=== PATIENT | female | born 1990 | race American Indian/Alaskan Native ===

== ENCOUNTER 2017-04-10 13:01 | Day surgery (SDC) | payer MEDICAID ==
[2017-04-10] MEDS ORDERED: DEXAMETHASONE 10 MG/ML VIAL IVP ONE (13:12)
[2017-04-10] MEDS ORDERED: LIDOCAINE 1% 2 ML INJ ID PRN (13:17)
[2017-04-10] MEDS ORDERED: LR 1,000 ML IV ONE (13:17)
--- NOTE | 2017-04-10 13:37 | PDANEPAE ---
ANE History of Present Illness 27 yo F h/o recurrent tonsillitis here for T/A ANE Past Medical History - Cardiovascular History Hx Hypertension: No Hx Arrhythmias: No Hx Chest Pain: No Hx Coronary Artery / Peripheral Vascular Disease: No Hx CHF / Valvular Disease: No Hx Palpitations: No - Pulmonary History Hx COPD: No Hx Asthma/Reactive Airway Disease: No Hx Recent Upper Respiratory Infection: No Hx Oxygen in Use at Home: No - Neurologic History Hx Cerebrovascular Accident: No Hx Seizures: No Hx Dementia: No - Endocrine History Hx Diabetes: No - Renal History Hx Renal Disorders: No - Liver History Hx Hepatic Disorders: No - Neurological & Psychiatric Hx Hx Neurological and Psychiatric Disorders: No - Cancer History Hx Cancer: No - Congenital Disorder History Hx Congenital Disorders: No - GI History Hx Gastrointestinal Disorders: Yes - Chronic Pain History Chronic Pain: Yes (KNEE PAIN) ANE Review of Systems - Exercise capacity METS (RN): 5 METS - Systems Respiratory: Reports: wheezing (mild intermittent asthma) ANE Patient History - Allergies Allergies/Adverse Reactions: naproxen Allergy (Mild, Verified 04/10/17 13:22) procaine [From Novocain] Adverse Reaction (Verified 04/10/17 13:36) dizzy - Home Medications Home medications: home medication list seen and reviewed Home Medications: Dicyclomine 07/01/15 [Last Taken Unknown] - NPO status NPO Since - Liquids (Date): 04/10/17 NPO Since - Liquids (Time): 10:58 NPO Since - Solids (Date): 04/09/17 NPO Since - Solids (Time): 22:30 - Anes Hx Anes Hx: no prior problems - Smoking Hx Smoking Status: Current some day smoker - Alcohol Use Alcohol Use: Occasionally - Family Anes Hx Family Anes Hx: none Family Hx Anesthesia Complications: NEG ANE Labs/Vital Signs - Vital Signs Blood Pressure: 125/93 Heart Rate: 57 Respiratory Rate: 16 O2 Sat (%): 96 Height: 157.48 cm Weight: 74.843 kg ANE Physical Exam - Airway Neck exam: FROM Mallampati Score: Class 2 Mouth exam: normal dental/mouth exam (chipped L incisor, R crown) - Pulmonary Pulmonary: no respiratory distress, clear to auscultation - Cardiovascular Cardiovascular: regular rate and rhythym, no murmur, rub, or gallop ANE Anesthesia Plan Anesthesia Plan: general endotracheal anesthesia
[2017-04-10] MEDS ORDERED: MIDAZOLAM 2 MG/2 ML VIAL IVP ONE (13:38)
[2017-04-10] MEDS ORDERED: fentaNYL 100 MCG/2 ML INJ ONE ×2 (13:50→15:22)
[2017-04-10] MEDS ORDERED: PROPOFOL 200 MG/20 ML VIAL ONE ×2 (13:50)
[2017-04-10] MEDS ORDERED: ROCURONIUM 50 MG/5 ML VIAL ONE (13:54)
[2017-04-10] MEDS ORDERED: LIDOCAINE 2% 100 MG/5 ML SYR ONE (13:54)
--- NOTE | 2017-04-10 13:55 | PDHPUP ---
History & Physical Update H&P update statement: This history and physical update is based on an assessment of the patient which was completed after admission or registration (within 24 hours), but prior to the surgery/procedure. H&P update: H&P reviewed & patient examined, no change in patient's condition since H&P completed
[2017-04-10] MEDS ORDERED: HYDROmorphONE/DILAUDID 2 MG/ML INJ ONE (14:36)
[2017-04-10] MEDS ORDERED: SUGAMMADEX SODIUM 200 MG/2 ML VIAL IVP ONE (15:07)
[2017-04-10] MEDS ORDERED: PROMETHAZINE HCL 25 MG/ML INJ IVP PRN (15:10)
[2017-04-10] MEDS ORDERED: ONDANSETRON 4 MG/2 ML VIAL IVP PRN (15:10)
[2017-04-10] MEDS ORDERED: ACETAMINOPHEN 500 MG TAB PO PRN (15:10)
[2017-04-10] MEDS ORDERED: OXYCODONE/APAP 5/325 TAB PO PRN (15:10)
[2017-04-10] MEDS ORDERED: HYDROmorphONE/DILAUDID 1 MG/ML SYR IVP PRN (15:10)
[2017-04-10] MEDS ORDERED: NALOXONE HCL 0.4 MG/ML INJ IVP PRN (15:10)
[2017-04-10] MEDS: fentaNYL 100 MCG/2 ML INJ IVP PRN ×2 (15:23→15:50)
--- NOTE | 2017-04-10 15:26 | POSTOPPROG ---
Post Op Note Date of Operation: 04/10/17 Surgeon: Gilda Brady Anesthesiologist: Dorothy Anesthesia: GET(General Endotracheal) Pre-op Diagnosis: Recurrent Acute Tonsillitis Post-op Diagnosis: same Procedure: Tonsillectomy B > 12 Findings: 3+ tonsils, friable Inf/Abcess present in the surg proc area at time of surgery?: No EBL: Minimal Complications: none
[2017-04-10] MEDS ORDERED: HYDROmorphONE/DILAUDID 1 MG/ML SYR ONE (16:10)
[2017-04-10 16:23] VITALS: RESP 16
[2017-04-10 16:33] VITALS: PULSE 89
[2017-04-10 16:40] VITALS: TEMP 98.1
--- NOTE | 2017-04-10 17:11 | POSTANESTH ---
Post Anesthetic Evaluation Cardiovascular Status: Normal, Stable, Similar to Pre-Op Cond Respiratory Status: Normal, Stable, Similar to Pre-op Cond. Level of Consciousness/Mental Status: Can Participate in Eval, Alert and Oriented Pain Control: Adequate, Prn Tx Ordered Nausea/Vomiting Control: Adequate, Prn Tx Ordered Complications Possibly Related to Anesthesia: None Noted
[2017-04-10 18:07] VITALS: BP 125/69; O2SAT 96
--- NOTE | 2017-04-11 00:50 | GOP ---
[f rep st] OPERATIVE REPORT DATE OF OPERATION: 04/10/2017 SURGEON: Gilda Brady MD ANESTHESIA: General. PREOPERATIVE DIAGNOSIS: Recurrent acute tonsillitis. POSTOPERATIVE DIAGNOSIS: Recurrent acute tonsillitis. PROCEDURE PERFORMED: FINDINGS: Patient is found to have tonsils that were about 3+ and cryptic, and friable. ESTIMATED BLOOD LOSS: Minimal. DESCRIPTION OF PROCEDURE: The patient was first seen in the preoperative area, where informed conse nt was obtained. She was then brought back to the operating room, where Anesthesia sedated and intu bated her. The bed was turned 90 degrees. A shoulder roll was placed, and she was prepped and drap ed in a sterile fashion. At this point, a Stiven-Ceasar mouth gag was placed in the oral cavity, and is suspended giving good visualization of the oropharynx. This was then suspended. A red rubber ca theter was placed through the right naris. The palate was palpated to confirm that there is no subm ucous cleft palate of which there was none, and then the red rubber catheter was brought out through the oral cavity and suspended. At this point, I placed a curved Allis clamp on the right tonsil, a nd then electrocautery on a amn-qd-oyfquceimdyn setting was used to remove this as a whole in a subc apsular plane, taking care to stay medial to the musculature. Bipolar cautery was used to cauterize any small bleeding vessels. This was removed and sent off the field separately for pathology, and then we turned our attention to the left side, did the exact same thing, removing the tonsil as a wh ole, and then using bipolar cautery, cauterized any small bleeding vessels. Once this was done, the Aakash mouth gag was unsuspended for about 30 seconds, and then resuspended, thereby giving some re lease of the tension, and there is no more active bleeding. The adenoid bed was evaluated using the mirror, and there was no significant adenoid tissue, so this was not done. The red rubber catheter was removed, and it was felt that it would be beneficial to approximate the anterior and posterior pillars, and so a 3-[address] used to place 2 interrupted sutures between the anterior and lead accountant ior pillars, first on the left, and then on the right. Once this was done, her oropharynx and stoma ch were suctioned out using an OG tube. She had no active bleeding, and she tolerated this well. T he Aakash mouth gag was removed. She was turned back over to Anesthesia, where she was awoken and e xtubated without any problems. All counts were correct at the end of the procedure. PROCEDURE: Tonsillectomy bilaterally, over 12. COMPLICATIONS: None. /[id number]/MODL
== END 2017-04-10 17:14 | disposition home or self-care (01) ==
LOC: FSGY 13:01
PROVIDERS: ATTEND Otolaryngology
PROC: 0CTPXZZ Resection of Tonsils, External Approach (ICD-10-PCS; principal; 2017-04-10 14:15)
DX: J03.91 Acute recurrent tonsillitis, unspecified (principal); J35.01 Chronic tonsillitis; F17.200 Nicotine dependence, unspecified, uncomplicated
CPT/HCPCS: J1170; J2001; J2250; J2704; J3010

== ENCOUNTER 2017-04-21 02:24 | Day surgery (SDC) | payer MEDICAID ==
[2017-04-21] MEDS ORDERED: TRANEXAMIC ACID 1,000 MG/10 ML VIAL ONE (02:44)
[2017-04-21] MEDS ORDERED: BENZOCAINE UNIT DOSE SPRAY HURRICAINE MM ONE ×2 (02:45→03:44)
[2017-04-21] MEDS ORDERED: TRANEXAMIC ACID 1,000 MG/10 ML VIAL TP ONE (03:44)
[2017-04-21] MEDS ORDERED: ONDANSETRON 4 MG/2 ML VIAL IVP ONE (03:44)
--- NOTE | 2017-04-21 03:44 | EDPHY ---
H & P Stated Complaint: pt had a tonsillectomy 9 days ago, started bleeding 30 mins Time Seen by Provider: 04/21/17 02:52 HPI/ROS: Chief Complaint: Post tonsillectomy bleed HPI: 27-year-old female who is 9 days post tonsillectomy started bleeding approximately 1-2 hours prior to arrival. Patient states she was at rest, felt the sensation of something back with throat. Coughed and started spitting up blood. She has spat up multiple clots since that time. No lightheadedness or fainting. No chest pain or shortness of breath. No palpitations. No fevers or chills. ROS: 10 point Review of Systems is negative except as noted in the HPI. PMH: Tonsillectomy 9 days ago Social History: No smoking, no alcohol, no recreational drug use Family History: non-contributory Physical Exam: Gen: Awake, Alert, No Distress HEENT: Nose: no rhinorrhea Eyes: PERRLA, EOMI Mouth: Moist mucosa there is a large clot in the right tonsillar postoperative site with active oozing. No large obvious oozing from the left. No brisk bleeding. Neck: Supple, no JVD Chest: nontender, lungs clear to auscultation Heart: S1, S2 normal, no murmur Abd: Soft, non-tender, no guarding Back: no CVA tenderness, no midline tenderness Ext: no edema, non-tender Skin: no rash Neuro: CN II-XII intact, Sensation grossly intact, Strength 5/5 in bilateral upper and lower extremities - Personal History LMP (Females 10-55): 1-7 Days Ago Current Tetanus Diphtheria and Acellular Pertussis (TDAP): Yes - Medical/Surgical History Hx Asthma: Yes Hx Chronic Respiratory Disease: No Hx Diabetes: No Hx Cardiac Disease: No Hx Renal Disease: No Hx Cirrhosis: No Hx Alcoholism: No Hx HIV/AIDS: No Hx Splenectomy or Spleen Trauma: No Other PMH: pmh- ibs. PSHx: wisdom tooth extraction. tonsillectomy - Social History Smoking Status: Current some day smoker Constitutional: Initial Vital Signs Heart Rate 85 04/21/17 02:26 Respiratory Rate 22 H 04/21/17 02:26 Blood Pressure 136/89 H 04/21/17 02:26 O2 Sat (%) 96 04/21/17 02:26 O2 Delivery Mode Room Air Allergies/Adverse Reactions: naproxen Allergy (Mild, Verified 04/10/17 13:22) procaine [From Novocain] Allergy (Verified 04/10/17 13:45) dizzy Home Medications: Medication Instructions Recorded Dicyclomine 07/01/15 oxyCODONE ORAL SOLUTION 5 mg PO Q6H PRN #1 bottle 04/10/17 [Roxicodone Intensol] Medical Decision Making ED Course/Re-evaluation: Attempts made to control bleeding both with ice water, and with topical tranexamic acid were unsuccessful. Patient is continuing to use. I have discussed with Dr. Emanuel, ENT. She will evaluate the patient ER with a plan to likely to the patient the operating room. Patient seen by Dr. Emanuel. Patient to go to the OR. - Data Points Medications Given: Discontinued Medications Benzocaine (Hurricaine [place]) 1 each MM EDNOW ONE Stop: 04/21/17 03:45 Last Admin: 04/21/17 03:00 Dose: 1 each Ondansetron HCl (Zofran) 4 mg IVP EDNOW ONE Stop: 04/21/17 03:45 Last Admin: 04/21/17 03:00 Dose: 4 mg Tranexamic Acid (Cyklokapron) 500 mg TP EDNOW ONE Stop: 04/21/17 03:45 Last Admin: 04/21/17 03:00 Dose: 500 mg Departure - Departure Disposition: To OP Cath/Surgery Clinical Impression: Post-tonsillectomy hemorrhage Condition: Fair Referrals: Susan Leach MD [Primary Care Provider] - As per Instructions
[2017-04-21] MEDS ORDERED: BUPIVACAINE 0.25% 30 ML SDV ONE (03:52)
[2017-04-21 04:08] VITALS: PULSE 64
[2017-04-21] MEDS ORDERED: fentaNYL 100 MCG/2 ML INJ ONE ×2 (04:11→05:03)
[2017-04-21] MEDS ORDERED: DEXAMETHASONE 4 MG/ML VIAL ONE ×3 (04:12→04:39)
[2017-04-21] MEDS ORDERED: PROPOFOL 200 MG/20 ML VIAL ONE ×2 (04:12→04:14)
[2017-04-21] MEDS ORDERED: ROCURONIUM 50 MG/5 ML VIAL ONE (04:12)
[2017-04-21] MEDS ORDERED: ONDANSETRON 4 MG/2 ML VIAL ONE (04:13)
[2017-04-21] MEDS ORDERED: LR 1,000 ML IV ONE (04:21)
[2017-04-21] MEDS ORDERED: MIDAZOLAM 2 MG/2 ML VIAL ONE (04:22)
[2017-04-21] MEDS ORDERED: MIDAZOLAM 2 MG/2 ML VIAL IVP ONE (04:24)
[2017-04-21] MEDS ORDERED: SUGAMMADEX SODIUM 200 MG/2 ML VIAL IVP ONE (04:41)
[2017-04-21] MEDS ORDERED: ACETAMINOPHEN 160 MG/5 ML UDCUP PO PRN (05:03)
[2017-04-21] MEDS ORDERED: HYDROCOD/APAP 7.5/325 IN 15ML UDCUP PO PRN (05:03)
[2017-04-21] MEDS ORDERED: ONDANSETRON 4 MG/2 ML VIAL IVP PRN (05:03)
[2017-04-21] MEDS ORDERED: ALBUTEROL 3 ML DEYVIAL IH PRN (05:06)
[2017-04-21] MEDS: fentaNYL 100 MCG/2 ML INJ IVP PRN ×2 (05:06→05:17)
[2017-04-21] MEDS ORDERED: MEPERIDINE 25 MG/ML SYR IVP PRN (05:06)
[2017-04-21] MEDS ORDERED: HYDROmorphONE/DILAUDID 1 MG/ML SYR IVP PRN (05:06)
[2017-04-21] MEDS ORDERED: LR 500 ML IV PRN (05:06)
[2017-04-21] MEDS ORDERED: NALOXONE HCL 0.4 MG/ML INJ IVP PRN (05:06)
[2017-04-21] MEDS ORDERED: fentaNYL 100 MCG/2 ML INJ IVP PRN (05:06)
--- NOTE | 2017-04-21 05:06 | PDANEPAE ---
ANE History of Present Illness post tonsil bleed ANE Past Medical History - Cardiovascular History Hx Hypertension: No Hx Arrhythmias: No Hx Chest Pain: No Hx Coronary Artery / Peripheral Vascular Disease: No Hx CHF / Valvular Disease: No Hx Palpitations: No - Pulmonary History Hx COPD: No Hx Asthma/Reactive Airway Disease: Yes Hx Recent Upper Respiratory Infection: No Hx Oxygen in Use at Home: No Hx Sleep Apnea: No Pulmonary History Comment: EXERCISE INDUCED ASTHMA - Neurologic History Hx Cerebrovascular Accident: No Hx Seizures: No Hx Dementia: No - Endocrine History Hx Diabetes: No - Renal History Hx Renal Disorders: No - Liver History Hx Hepatic Disorders: No - Neurological & Psychiatric Hx Hx Neurological and Psychiatric Disorders: No - Cancer History Hx Cancer: No - Congenital Disorder History Hx Congenital Disorders: No - GI History Hx Gastrointestinal Disorders: Yes Gastrointestinal History Comment: IBS - Other Health History Other Health History: NEG - Chronic Pain History Chronic Pain: Yes (KNEE PAIN) - Surgical History Prior Surgeries: ACL/MENISCUS R KNEE. COLONOSCOPY ANE Review of Systems - Exercise capacity METS (RN): 4 METS ANE Patient History - Allergies Allergies/Adverse Reactions: naproxen Allergy (Mild, Verified 04/10/17 13:22) procaine [From Novocain] Allergy (Verified 04/10/17 13:45) dizzy - Home Medications Home Medications: Dicyclomine 07/01/15 [Last Taken 03/31/17] - NPO status NPO Since - Liquids (Date): 04/20/17 NPO Since - Liquids (Time): 21:00 NPO Since - Solids (Date): 04/21/17 NPO Since - Solids (Time): 21:00 - Anes Hx Anes Hx: no prior problems - Smoking Hx Smoking Status: Current some day smoker - Family Anes Hx Family Hx Anesthesia Complications: NEG ANE Labs/Vital Signs - Vital Signs Blood Pressure: 105/54 Heart Rate: 64 Respiratory Rate: 14 O2 Sat (%): 96 Height: 157.48 cm Weight: 72.575 kg ANE Physical Exam - Airway Mallampati Score: Class 2 Mouth exam: normal dental/mouth exam - Pulmonary Pulmonary: no respiratory distress - Cardiovascular Cardiovascular: regular rate and rhythym - ASA Status ASA Status: II, E ANE Anesthesia Plan Anesthesia Plan: general endotracheal anesthesia Urgent/Emergent Case: Jimmie parrish completed preop but documented later for safe timely pt care
--- NOTE | 2017-04-21 05:12 | GOP ---
[f rep st] OPERATIVE REPORT DATE OF OPERATION: 04/21/2017 SURGEON: Cheri Emanuel MD PRINT PRODUCTION COORDINATOR: None. ANESTHESIA: General endotracheal with rapid sequence intubation. PREOPERATIVE DIAGNOSIS: Post tonsillectomy hemorrhage. POSTOPERATIVE DIAGNOSIS: Post tonsillectomy hemorrhage. PROCEDURE PERFORMED: FINDINGS: Arterial bleed mid-pole right tonsillar fossa controlled with suction Bovie cautery. INDICATIONS: The patient is a 27-year-old female, who is 9 days postop of a tonsillectomy for chron ic tonsillitis. She presented with large volume hemoptysis at home, and then to the emergency depar tment at 3:30 in the morning on 04/21/2017. It was decided proceed forward to the operating room fo r control of the bleeding. DESCRIPTION OF PROCEDURE: The patient was met in preoperative holding, and informed consent was con firmed. The patient brought to the operating room. She underwent induction of rapid sequence intub ation without difficulty. She was rotated 90 degrees and a shoulder roll was placed for gentle neck extension. She began having very large volumes of blood, once the tube was in and she was under ge neral anesthesia, from both her nose and her mouth. This was all suctioned away. She was suspended using a Stiven-Ceasar mouth gag from a [place] stand. The excess blood and clot was suctioned away. Th e left tonsillar fossa was pristine. The right tonsillar fossa identified a small arterial bleed mi d pole that was easily controlled using suction Bovie cautery. The stomach was decompressed of any excess blood. She was taken off the suspension and resuspended. There was no further bleeding. He r nose and mouth were copiously irrigated of any excess clots, and at this point she was taken off s uspension, the mouth gag was removed, and she was returned back to Anesthesia for wake up. At the e nd of this procedure, all sponge, needle, and instrument counts were correct. I personally performe d all portions of this case. PROCEDURE: Control of post tonsillectomy hemorrhage. /[id number]/MODL
[2017-04-21] MEDS ORDERED: D5W LR 1,000 ML IV SCH (05:15)
[2017-04-21 05:54] VITALS: TEMP 99.1
[2017-04-21 06:43] VITALS: BP 122/74; RESP 22; O2SAT 95
--- NOTE | 2017-04-21 10:31 | GCON ---
[f rep st] CONSULTATION REFERRING PHYSICIAN: Romel Murrell MD REASON FOR CONSULTATION: Post tonsillectomy hemorrhage. HISTORY OF PRESENT ILLNESS: Patient is an otherwise healthy 27-year-old female who underwent tonsi llectomy by Dr. Gilda Brady, 9 days prior, for an indication of chronic tonsillitis. She presente d with a large volume hemoptysis and bleeding from both tonsillar sides early in the morning of 03/25. The volume was such that even though she had slowed down by the time she presented, we opted to take her back to the operating room for control of the post tonsil hemorrhage. PAST MEDICAL HISTORY: Healthy. ALLERGIES: She has had unusual reaction to naproxen in the past. CURRENT MEDICATIONS: Her pain medicines for after post tonsil hemorrhage and p.r.n. dicyclomine for irritable bowel. FAMILY HISTORY: Diabetes in father. No bleeding disorder. SOCIAL HISTORY: She is . She recently graduated from school. She is actually supposed to be going to a job interview on Monday. REVIEW OF SYSTEMS: Otherwise negative, except as in History of Present Illness. PHYSICAL EXAM: GENERAL: She is awake, alert, oriented, in no apparent distress currently. HEENT: Pu pils are equal and reactive to light. Extraocular muscles are intact. External ears are within refugio l limits. Anterior nasal rhinoscopy is clean. Oral cavity exam reveals extensive blood staining, neno e clot in the posterior oropharynx; however, in an effort not to disturb it, this was my examined an y further. NECK: Supple without adenopathy or mass. Trachea is midline. NEUROLOGIC: Cranial nerves 2 -12 are otherwise intact. LUNGS: CTA bilaterally. CARDIAC: Regular rate and rhythm. IMPRESSION: Post tonsil hemorrhage. PLAN: Go to the OR for control of post tonsil hemorrhage. /[id number]/MODL
== END 2017-04-21 06:16 | disposition home or self-care (01) ==
LOC: FSGY 04:30
PROVIDERS: ATTEND Otolaryngology
PROC: 0W33XZZ Control Bleeding in Oral Cavity and Throat, External Approach (ICD-10-PCS; principal; 2017-04-21 07:00)
DX: J95.830 Postprocedural hemorrhage of a respiratory system organ or structure following a respiratory system procedure (principal); F17.210 Nicotine dependence, cigarettes, uncomplicated
CPT/HCPCS: 96374; J0690; J1100; J2250; J2405; J2704; J3010